=== PATIENT | female | born 1960 | race Caucasian/White ===

== ENCOUNTER 2019-02-11 11:19 | Day surgery (SDC) | payer BC ==
[2019-02-11] MEDS: LACTATED RINGER'S 1,000 ML IV (13:00)
[2019-02-11] MEDS ORDERED: SEVOFLURANE 15 MIN (13:00)
[2019-02-11] MEDS ORDERED: NEOSTIGMINE 3 MG/3 ML SYRINGE (13:00)
[2019-02-11] MEDS ORDERED: PROPOFOL 20 ML (13:19)
[2019-02-11] MEDS ORDERED: FENTAnyl 50 MCG/ML VIAL ×2 (13:20→15:26)
[2019-02-11] MEDS ORDERED: ONDANSETRON 4 MG INJ ×2 (13:20→15:25)
[2019-02-11] MEDS ORDERED: METOCLOPRAMIDE 10 MG INJ (13:20)
[2019-02-11] MEDS ORDERED: MIDAZOLAM 1 MG/ML 2 ML INJ (13:20)
[2019-02-11] MEDS ORDERED: CEFAZOLIN 1 GM INJ (13:36)
[2019-02-11] MEDS ORDERED: EPHEDrine 25 MG/5 ML SYG (14:01)
[2019-02-11] MEDS ORDERED: GLYCOPYRROLATE 0.4 MG INJ (14:15)
[2019-02-11] MEDS: POLYMYXIN/BACITRACIN 1L IRRIG (14:24)
[2019-02-11] MEDS ORDERED: BUPIVACAINE 0.25% (MPF) 30 ML INJ (14:57)
[2019-02-11] MEDS ORDERED: DEXAMETHASONE 4 MG/ML 1 ML INJ (15:00)
[2019-02-11] MEDS ORDERED: MEPERIDINE 25 MG INJ (15:25)
[2019-02-11] MEDS: MEPERIDINE 25 MG INJ IV (16:19)
[2019-02-11] MEDS: FENTAnyl 50 MCG/ML VIAL IV (16:19)
[2019-02-11] MEDS: ONDANSETRON 4 MG INJ IV (16:20)
[2019-02-11] MEDS: PROCHLORPERAZINE 10 MG INJ IV (16:22)
[2019-02-11] MEDS: HYDROmorphONE 1 MG/5 ML IV SYRINGE IV (16:22)
[2019-02-11] MEDS: OXYCODONE/ACETAMINOPHEN (5/325) TAB PO (16:40)
== END 2019-02-11 18:28 | disposition home or self-care (01) ==
LOC: SDS 11:19
DX: S92.351D Displaced fracture of fifth metatarsal bone, right foot, subsequent encounter for fracture with routine healing (principal); X58.XXXD Exposure to other specified factors, subsequent encounter; D16.31 Benign neoplasm of short bones of right lower limb; M20.41 Other hammer toe(s) (acquired), right foot
CPT/HCPCS: 28124; 73620; 73630